=== PATIENT | female | born 1970 | race Caucasian/White ===

== ENCOUNTER 2017-04-01 09:14 | Emergency (ER) | payer OTHER ==
[2017-04-01 09:23] VITALS: BP 122/70; PULSE 64; TEMP 98.1; BMI 24.7
[2017-04-01] MEDS ORDERED: IBUPROFEN 600 MG TABLET (FP) PO ONE (11:01)
--- NOTE | 2017-04-01 11:07 | PDOC ---
History of Present Illness - General Chief Complaint: Wound Stated Complaint: ABSCESS BOIL Time Seen by Provider: 04/01/17 09:50 History Source: Patient Exam Limitations: No Limitations - History of Present Illness Initial Comments: 04/01/17 12:48 My Chief complaint: Raised tender area rt. forearm getting worse History of present illness: Pt. is a 46-year-old female with h/o hyperlipidemia here today of raised area on her right forearm getting bigger over the last few months. Patient reports that she has always been the type of person that develops cyst and the various parts of her body. Patient reports that this area is turned slightly erythematous the last few days and is tender to touch. Patient denies any fever. Patient is up-to-date with immunizations tetanus. 04/01/17 12:51 Timing/Duration: getting worse Severity: mild Associated Symptoms: reports: other (slightly distal to rt. medial elbow area fluculant slightly erythematous area dime size) Past History - Past Medical History Allergies/Adverse Reactions: Allergies Allergy/AdvReac Type Severity Reaction Status Date / Time cephradine [From Velosef] Allergy Verified 04/01/17 09:22 ciprofloxacin [From Cipro] Allergy Verified 04/01/17 09:22 ciprofloxacin HCl Allergy Verified 04/01/17 09:22 [From Cipro] levofloxacin [From Levaquin] Allergy Verified 04/01/17 09:22 Penicillins Allergy Verified 04/01/17 09:22 Sulfa (Sulfonamide Allergy Verified 04/01/17 09:22 Antibiotics) Home Medications: Ambulatory Orders Chlorhexidine Gluconate [Hibiclens For Decolonization -] 1 applic TP DAILY #1 bottle 04/15/16 Hypercholesterolemia: Yes Other medical history: PATIENT DENIES MEDICAL HISTORY - Psycho/Social/Smoking Cessation Hx Anxiety: No Suicidal Ideation: No Smoking History: Current every day smoker Have you smoked in the past 12 months: No Number of Cigarettes Smoked Daily: 30 Information on smoking cessation initiated: No Hx Alcohol Use: Yes (OCCASIONALLY) Drug/Substance Use Hx: No Substance Use Type: Alcohol Review of Systems - Review of Systems Able to Perform ROS?: Yes Constitutional: No: Symptoms Reported HEENTM: No: Symptoms Reported Respiratory: No: Symptoms reported Cardiac (ROS): No: Symptoms Reported Musculoskeletal: No: Symptoms Reported Integumentary: Yes: Other (dime size fluculant raised area erythematous slightly and slightly tender) Neurological: No: Symptoms reported *Physical Exam - Vital Signs Last Vital Signs Temp Pulse Resp BP Pulse Ox 98.1 F 64 18 122/70 98 04/01/17 09:18 04/01/17 09:18 04/01/17 09:18 04/01/17 09:18 04/01/17 09:18 - Physical Exam General Appearance: Yes: Appropriately Dressed Comments:: 04/01/17 11:00 radial pulse rt. 4 + Integumentary: positive: Erythema (raised fluculant area slightly tender mobile dime size slight proximal to rt. medial elbow) Neurologic: positive: Normal Response, Respond to painful stimul (rt.forearm ). negative: Numbness, Sensory Deficit (rt. forearm ) Procedures - Consent Consent obtained: From Patient - Incision and Drainage I&D Site: Right: Arm (slightly proximal to rt. medial elbow ) Betadine cleansed: Yes Anesthesia: 1% Lidocaine Blade Size: 11 Attempts: 1 Plain Packing: No Complications: none Dressing: Yes (2 x 2 than tegaderm applied ) Progress: 04/01/17 11:02 cleansed with betadine, than using 11 blade syringe, 1 cm open area made small amount of thick serosangious discharge, irrigated with NS 0.9 % than DSD applied with tegaderm Medical Decision Making - Medical Decision Making 04/01/17 12:52 : Pt. is a 46-year-old female with h/o hyperlipidemia here today of raised area on her right forearm getting bigger over the last few months. Patient reports that she has always been the type of person that develops cyst and the various parts of her body. Patient reports that this area is turned slightly erythematous the last few days and is tender to touch. Patient denies any fever. Patient is up-to-date with immunizations tetanus. Rt. forearm cyst I & D PLAN: I&D of cyst on right forearm wound C & S rt. forearm *DC/Admit/Observation/Transfer Diagnosis at time of Disposition: Cyst, dermoid, arm Qualifiers: Laterality: right Qualified Code(s): D23.61 - Other benign neoplasm of skin of right upper limb, including shoulder - Discharge Dispostion Disposition: HOME Condition at time of disposition: Stable - Patient Instructions Additional Instructions: Return to emergency room if any redness around wound FOLLOW UP WITH PRIMARY CARE PROVIDER WITHIN THE NEXT FEW DAYS CLEANSE WOUND WITH ANTIBACTERIAL SOAP AND WATER AND APPLY DRESSING PATIENT VOICED UNDERSTANDING OF DISCHARGE INSTRUCTIONS AND ALL QUESTIONS WERE ANSWERED
== END 2017-04-01 11:22 | disposition home or self-care (01) ==
LOC: JERFT 09:14
PROC: 0H9DXZZ Drainage of Right Lower Arm Skin, External Approach (ICD-10-PCS; principal; 2017-04-01)
DX: L72.8 Other follicular cysts of the skin and subcutaneous tissue (principal)
CPT/HCPCS: 87070; 87205; 99281-25

== ENCOUNTER 2017-04-08 10:14 | Emergency (ER) | payer OTHER ==
[2017-04-08 10:19] VITALS: BP 112/74; PULSE 79; TEMP 98; BMI 24.7
--- NOTE | 2017-04-08 11:25 | PDOC ---
History of Present Illness - General Chief Complaint: Abscess Boil Stated Complaint: REVISIT Time Seen by Provider: 04/08/17 11:19 History Source: Patient Exam Limitations: No Limitations - History of Present Illness Initial Comments: CHIEF COMPLAINT: 46 y/o afebrile female with no significant PMH c/o painful pimple to the face. HISTORY OF PRESENT ILLNESS: The patient states she's prone to pimples on her face but this one is large and painful. She has not tried to pop the pimple and has done nothing about it. She denies f/c, n/v/d, swelling to face, redness to face, streaking. Vital signs on arrival are within normal limits. REVIEW OF SYSTEMS: GENERAL/CONSTITUTIONAL: No fever/chills. No weakness. No weight change. MUSCULOSKELETAL: No joint or muscle swelling or pain. No neck or back pain. SKIN: +Painful pimple to face. NEUROLOGIC: No headache, vertigo, loss of consciousness, or loss of sensation. PHYSICAL EXAM: VITAL_SIGNS: within normal limits GENERAL_APPEARANCE: alert, cooperative, no obvious discomfort. MENTAL_STATUS: speech clear, oriented X 3, responds appropriately to questions. NEURO: motor intact and sensory intact in injured extremity. EXTREMITIES: good pulse in injured extremity, affected area on extremity has mild erythema, mild swelling, mild tenderness and no abrasions\lacerations. SKIN: 0.25cm raised pustule on left side of face along mandible with central head. No surrounding erythema, edema or streaking. No trismus. Past History - Past Medical History Allergies/Adverse Reactions: Allergies Allergy/AdvReac Type Severity Reaction Status Date / Time cephradine [From Velosef] Allergy Verified 04/08/17 10:15 ciprofloxacin [From Cipro] Allergy Verified 04/08/17 10:15 ciprofloxacin HCl Allergy Verified 04/08/17 10:15 [From Cipro] levofloxacin [From Levaquin] Allergy Verified 04/08/17 10:15 Penicillins Allergy Verified 04/08/17 10:15 Sulfa (Sulfonamide Allergy Verified 04/08/17 10:15 Antibiotics) Home Medications: Ambulatory Orders NK [No Known Home Medication] 04/08/17 Hypercholesterolemia: Yes - Psycho/Social/Smoking Cessation Hx Anxiety: No Suicidal Ideation: No Smoking History: Current every day smoker Have you smoked in the past 12 months: Yes Number of Cigarettes Smoked Daily: 40 Information on smoking cessation initiated: Yes Hx Alcohol Use: No Drug/Substance Use Hx: No Substance Use Type: Alcohol *Physical Exam - Vital Signs Last Vital Signs Temp Pulse Resp BP Pulse Ox 98.0 F 79 18 112/74 100 04/08/17 10:16 04/08/17 10:16 04/08/17 10:16 04/08/17 10:16 04/08/17 10:16 Medical Decision Making - Medical Decision Making A/P: 46 y/o female with pimple to left side of face. Applied gentle pressure and a small amount of yellow purulent discharge was expressed. After that a small amount of blood was expressed. Cleaned the area with hydrogen peroxide and covered with bacitracin and a bandaid. Pt was instructed to apply warm compresses to the area and keep clean and dry. The patient verbalizes understanding of all instructions, has no further questions and is awaiting discharge. *DC/Admit/Observation/Transfer Diagnosis at time of Disposition: Pimples - Discharge Dispostion Disposition: HOME Condition at time of disposition: Improved - Referrals Referrals: Clau Cruz [Primary Care Provider] - Iris Ibarra MD [Staff Physician] - 1 week - Patient Instructions Printed Discharge Instructions: DI for Acne, DI for Skin Abscess Additional Instructions: Discharge Instructions: -Apply gentle pressure and warm compresses to keep pimple open and draining -Keep area clean with hydrogen peroxide -Call Dr. Ibarra in 1 week if no improvement in symptoms -Return to the ER with any worsening or concerning symptoms.
== END 2017-04-08 11:32 | disposition home or self-care (01) ==
LOC: JERFT 10:14
DX: R23.8 Other skin changes (principal); F17.210 Nicotine dependence, cigarettes, uncomplicated
CPT/HCPCS: 99281-25

== ENCOUNTER 2017-07-04 13:20 | Emergency (ER) | payer OTHER ==
[2017-07-04 13:27] VITALS: BP 112/71; PULSE 74; TEMP 98.8; BMI 25.7
--- NOTE | 2017-07-04 14:31 | PDOC ---
History of Present Illness - General Chief Complaint: Abscess Boil Stated Complaint: REVISIT Time Seen by Provider: 07/04/17 13:39 History Source: Patient Exam Limitations: No Limitations - History of Present Illness Initial Comments: 07/04/17 14:25 47 year old female with abscess to sacral area x 3 days. Patient reports reports incidents of abscess that requires incision and drain. Denies fever or chills, complaining of pain in area. Timing/Duration: reports: week Severity: Yes: mild Location: reports: other (sacrum ) Respiratory Risk Factors: reports: no cause identified Associated Symptoms: reports: swelling/mass/lumps Past History - Travel Traveled outside of the country in the last 30 days: No Close contact w/someone who was outside of country & ill: No - Past Medical History Allergies/Adverse Reactions: Allergies Allergy/AdvReac Type Severity Reaction Status Date / Time cephradine [From Velosef] Allergy Verified 07/04/17 13:24 ciprofloxacin [From Cipro] Allergy Verified 07/04/17 13:24 ciprofloxacin HCl Allergy Verified 07/04/17 13:24 [From Cipro] levofloxacin [From Levaquin] Allergy Verified 07/04/17 13:24 Penicillins Allergy Verified 07/04/17 13:24 Sulfa (Sulfonamide Allergy Verified 07/04/17 13:24 Antibiotics) Home Medications: Ambulatory Orders Clindamycin [Cleocin -] 300 mg PO Q6HPO #28 capsule 07/04/17 Ibuprofen [Motrin -] 600 mg PO TID #21 tablet 07/04/17 Hypercholesterolemia: Yes - Immunization History Immunization Up to Date: Yes - Psycho/Social/Smoking Cessation Hx Anxiety: No Suicidal Ideation: No Smoking History: Current every day smoker Have you smoked in the past 12 months: Yes Number of Cigarettes Smoked Daily: 40 Information on smoking cessation initiated: No Hx Alcohol Use: No Drug/Substance Use Hx: No Substance Use Type: Alcohol Review of Systems - Review of Systems Able to Perform ROS?: Yes Is the patient limited [place]an proficient: No Constitutional: No: Chills, Diaphoresis, Fever, Loss of Appetite, Malaise, Night Sweats, Weakness, Weight Stable, Unintentional Wgt. Loss, Unexplained wgt Loss HEENTM: No: Nose Congestion, Hearing Loss, Throat Pain, Throat Swelling Respiratory: No: Cough, Orthopnea, Wheezing Cardiac (ROS): No: Chest Pain, Lightheadedness, Palpitations ABD/GI: No: Abdominal Distended, Constipated : No: Burning, Dysuria Musculoskeletal: No: See HPI, Back Pain, Muscle Weakness Integumentary: Yes: Other (sacral abscess ). No: Bruising Neurological: No: Headache, Numbness *Physical Exam - Vital Signs Last Vital Signs Temp Pulse Resp BP Pulse Ox 98.8 F 74 19 112/71 98 07/04/17 13:24 07/04/17 13:24 07/04/17 13:24 07/04/17 13:24 07/04/17 13:24 - Physical Exam General Appearance: Yes: Nourished, Appropriately Dressed. No: Apparent Distress HEENT: positive: EOMI, SHALA, TMs Normal, Pharynx Normal. negative: Normal Voice Neck: positive: Supple. negative: Tender, Lymphadenopathy (R), Lymphadenopathy (L) Respiratory/Chest: positive: Lungs Clear, Normal Breath Sounds. negative: Chest Tender Cardiovascular: positive: Regular Rhythm, Regular Rate, S1, S2 Musculoskeletal: positive: Normal Inspection. negative: CVA Tenderness (R), CVA Tenderness (L) Extremity: positive: Normal Capillary Refill Integumentary: positive: Other (draining sacral abscess, induration on both inner buttock, tender and red ) Neurologic: positive: rand maker II-XII NML intact, Fully Oriented, Alert Medical Decision Making - Medical Decision Making 07/04/17 14:39 47 year old female with history of hyperlipidemia present with draining sacral abscess, afebrile d/c home with Rx: clindamycin and ibuprofen instructions to use sitz bath 07/04/17 14:44 07/04/17 14:57 *DC/Admit/Observation/Transfer Diagnosis at time of Disposition: Abscess of sacrum - Discharge Dispostion Disposition: HOME Condition at time of disposition: Good Admit: No - Prescriptions Prescriptions: Clindamycin [Cleocin -] 300 mg PO Q6HPO #28 capsule Ibuprofen [Motrin -] 600 mg PO TID #21 tablet - Referrals Referrals: Clau Cruz [Primary Care Provider] - - Patient Instructions Printed Discharge Instructions: DI for Incision and Drainage of a Skin Abscess Additional Instructions: *Please use sitz bath 3 to 4 times daily for 30 minutes at a time *Take medication as prescribed completely. Return for worsening symptoms that includes fever and chills * May call primary physician for follow up appointment - Post Discharge Activity Work/School Note: Back to Work
--- NOTE | 2017-07-07 20:56 | PDOC ---
Patient Follow-up (Call Back) - Post ED Follow - Up Chief Complaint: Abscess Boil Condition at time of discharge: Good Disposition at time of original discharge: HOME Reason for Call Back: Abnwl. Microbiology Signs/Symptoms Improved: (send home on clindamycin. wound culture diphtheroid/ corneabacterium) - Disposition Rx Needed: No
== END 2017-07-04 14:46 | disposition home or self-care (01) ==
LOC: JERFT 13:20
DX: L02.212 Cutaneous abscess of back [any part, except buttock and flank] (principal); I10 Essential (primary) hypertension
CPT/HCPCS: 87070; 87077; 87205; 99281-25

== ENCOUNTER 2019-08-26 13:19 | Emergency (ER) | payer OTHER ==
[2019-08-26 13:32] VITALS: BP 115/63; PULSE 72; TEMP 98.7; BMI 27.4
--- NOTE | 2019-08-26 13:42 | PDOC ---
History of Present Illness - General Chief Complaint: Abscess Boil Stated Complaint: INFECTION Time Seen by Provider: 08/26/19 13:42 History Source: Patient - History of Present Illness Initial Comments: 08/26/19 14:24 Chief complaint: Abscess Patient is a 49-year-old female with history of past abscesses who states she noticed some pain to her right groin. Patient has no fever and otherwise feels well. GENERAL/CONSTITUTIONAL: No fever, weakness. dizziness HEAD, EYES, EARS, NOSE AND THROAT: No change in vision. No ear pain or discharge. No sore throat. CARDIOVASCULAR: No chest pain RESPIRATORY: No shortness of breath or cough GASTROINTESTINAL: No pain, nausea, vomiting, diarrhea or constipation GENITOURINARY: No dysuria MUSCULOSKELETAL: No neck or back pain SKIN: No rash, + abscess NEUROLOGIC: No headache, vertigo, loss of consciousness, or loss of sensation. GENERAL: The patient is awake, alert, and fully oriented, in no acute distress. HEAD: Normal with no signs of trauma. EYES: Pupils equal, round and reactive to light, sclera anicteric, conjunctiva clear. ENT: pharynx: no erythema, no exudate, uvula midline NECK: supple CHEST: clear, nontender, rr ABD: soft, nontender, right groin with scar tissue, small 2 cm red and tender area, no fluctuance with a small solid growth in the center. No abscess, no lymphadenopathy BACK: no tenderness or signs of injury EXTREMITIES: Normal range of motion, no edema. NEUROLOGICAL: Normal speech, normal gait. SKIN: Warm, Dry Past History - Past Medical History Allergies/Adverse Reactions: Allergies Allergy/AdvReac Type Severity Reaction Status Date / Time cephradine [From Velosef] Allergy Verified 08/26/19 13:33 ciprofloxacin [From Cipro] Allergy Verified 08/26/19 13:33 ciprofloxacin HCl Allergy Verified 08/26/19 13:33 [From Cipro] levofloxacin [From Levaquin] Allergy Verified 08/26/19 13:33 Penicillins Allergy Verified 08/26/19 13:33 Sulfa (Sulfonamide Allergy Verified 08/26/19 13:33 Antibiotics) Home Medications: Ambulatory Orders Ibuprofen [Motrin -] 600 mg PO TID #21 tablet 07/04/17 Clindamycin [Cleocin -] 300 mg PO Q6HPO #28 capsule 08/26/19 Mupirocin Cream [Bactroban 2% Cream -] 1 applic TP TID #1 tube 08/26/19 COPD: No Hypercholesterolemia: Yes - Surgical History Abdominal Surgery: (OVARY REMOVAL) - Immunization History Immunization Up to Date: Yes - Psycho Social/Smoking Cessation Hx Smoking History: Current every day smoker Have you smoked in the past 12 months: Yes Number of Cigarettes Smoked Daily: 20 Information on smoking cessation initiated: No Hx Alcohol Use: No Drug/Substance Use Hx: No Substance Use Type: Alcohol *Physical Exam - Vital Signs Last Vital Signs Temp Pulse Resp BP Pulse Ox 98.7 F 72 18 115/63 98 08/26/19 13:29 08/26/19 13:29 08/26/19 13:29 08/26/19 13:29 08/26/19 13:29 Medical Decision Making - Medical Decision Making 08/26/19 14:26 Patient is a 49-year-old female with history of recurring abscesses, skin who started having pain to the right groin and a skin bump. There is no sign of abscess to drain but there is a small red tender area with a central solid growth. Will treat for localized cellulitis, patient has multiple antibiotic allergies, can take clindamycin. Also requesting Bactroban. Patient will follow-up with either reserve officer or WIG DRESSER to have the growth evaluated, for possible removal, biopsy as discussed fully with patient. Discussed issues, findings, results, applicable medications and treatments and follow-up. All these were understood and all questions were answered Discharge - Discharge Information Problems reviewed: Yes Clinical Impression/Diagnosis: Localized bacterial infection of skin Condition: Stable Disposition: HOME - Admission No - Additional Discharge Information Prescriptions: Clindamycin [Cleocin -] 300 mg PO Q6HPO #28 capsule Mupirocin Cream [Bactroban 2% Cream -] 1 applic TP TID #1 tube - Follow up/Referral Referrals: Ronak Ortiz MD [Primary Care Provider] - - Patient Discharge Instructions Additional Instructions: Clean with soap and water 2-3 times daily, apply Bactroban Take the clindamycin as prescribed until it is finished even if you feel better Have her reevaluated if redness, pus, fever or getting worse Followup with your doctor - Post Discharge Activity Work/Back to School Note: Back to Work
== END 2019-08-26 14:14 | disposition home or self-care (01) ==
LOC: JERFT 13:19
DX: L03.314 Cellulitis of groin (principal); B96.89 Other specified bacterial agents as the cause of diseases classified elsewhere; Z88.0 Allergy status to penicillin; Z88.2 Allergy status to sulfonamides; Z88.1 Allergy status to other antibiotic agents
CPT/HCPCS: 99281-25